=== PATIENT | male | born 1935 | race Hispanic/Latino ===

== ENCOUNTER 2017-09-10 15:21 | Inpatient (IN) | payer MEDICARE ==
[2017-09-10] MEDS ORDERED: TYLENOL PO ONE (15:56)
[2017-09-10] MEDS ORDERED: DUONEB *Not for PRN Use IH ONE ×2 (16:00→18:18)
[2017-09-10 16:27] LABS: Basophils % (Auto) 0.3 % (0.0-1.8); Eosinophils % (Auto) 0.2 % (0.0-4.3); Hematocrit 40.4 % (35.5-45.6); Lymphocytes # (Auto) 0.7 K/mm3 (1.2-5.4); Lymphocytes % (Auto) 8.2 % (13.4-35.0); Mean Corpuscular HGB Conc 35 % (32-34); Mean Corpuscular Hemoglobin 32 pg (28-32); Mean Corpuscular Volume 91 fl (84-94); Monocytes # (Auto) 0.8 K/mm3 (0.0-0.8); Monocytes % (Auto) 9.1 % (0.0-7.3); Platelet Count 147 K/mm3 (140-440); Red Blood Count 4.42 M/mm3 (3.65-5.03); Red Cell Distribution Width 13.2 % (13.2-15.2)
[2017-09-10 16:34] LABS: INR 1.09 (0.87-1.13)
[2017-09-10 16:46] LABS: Alanine Aminotransferase 7 units/L (7-56); Albumin 3.9 g/dL (3.9-5); BUN/Creatinine Ratio 19; Blood Urea Nitrogen 17 mg/dL (9-20); Calcium 8.5 mg/dL (8.4-10.2); Hemolysis Index 3
[2017-09-10] MEDS ORDERED: TAMIFLU PO ONE (17:00)
--- NOTE | 2017-09-10 17:24 | XRay Report ---
FINAL REPORT EXAM: XR CHEST 1V AP HISTORY: possible Sepsis TECHNIQUE: upright single view chest PRIORS: None. FINDINGS: Cardiac and mediastinal contours are unremarkable. No focal pulmonary infiltrate is identified. No pleural fluid collection seen. Pulmonary vasculature is unremarkable. Sternotomy wires are noted. IMPRESSION: Negative single-view chest
--- NOTE | 2017-09-10 17:57 | Emergency Department Report ---
ED Fever HPI - General Chief Complaint: Fever Stated Complaint: FLU LIKE SYMPTOMS Time Seen by Provider: 09/10/17 15:59 Source: patient, family - History of Present Illness Initial Comments: Patient's sick for several days, saw his primary doctor yesterday and they started Motrin. Patient does have fever and body aches questionable productive cough denies chest pain no headache no stiff neck no rash here for evaluation of fever and generalized malaise bodyaches with possible productive sputum o2 86 ra at triage Fever Severity/Quality: greater than 100.5 F Associated Symptoms: shortness of breath. denies: chest pain, diaphoresis, headache, nausea/vomiting, rash, stiff neck, weakness ED Review of Systems ROS: Stated complaint: FLU LIKE SYMPTOMS Other details as noted in HPI Comment: All other systems reviewed and negative Constitutional: fever, malaise, weakness. denies: diaphoresis Respiratory: cough. denies: orthopnea, stridor Cardiovascular: denies: chest pain, palpitations, dyspnea on exertion, orthopnea , edema, syncope, paroxysmal nocturnal dyspnea Gastrointestinal: denies: hematemesis, melena, hematochezia Musculoskeletal: denies: joint swelling, arthralgia, myalgia Skin: denies: rash, lesions Neurological: denies: numbness, paresthesias, confusion, abnormal gait, vertigo ED Past Medical Hx - Past Medical History Previous Medical History?: Yes Hx Heart Attack/AMI: Yes - Surgical History Past Surgical History?: Yes Hx Open Heart Surgery: Yes (triple bypass) - Social History Smoking Status: Former Smoker Substance Use Type: None ED Physical Exam - General Limitations: No Limitations General appearance: alert, anxious, other (moderate distress. increased wob) - Head Head exam: Present: atraumatic, normocephalic - Neck Neck exam: Present: normal inspection. Absent: tenderness, meningismus - Respiratory Respiratory exam: Present: wheezes, rales, rhonchi, accessory muscle use. Absent: stridor, chest wall tenderness - Cardiovascular Cardiovascular Exam: Present: regular rate, normal heart sounds. Absent: systolic murmur, rubs, gallop - GI/Abdominal GI/Abdominal exam: Present: soft. Absent: tenderness, guarding, rebound, mass, pulsatile mass - Extremities Exam Extremities exam: Present: normal inspection. Absent: tenderness, joint swelling, calf tenderness - Neurological Exam Neurological exam: Present: alert, oriented X3, CN II-XII intact. Absent: motor sensory deficit - Psychiatric Psychiatric exam: Present: anxious. Absent: suicidal ideation - Skin Skin exam: Absent: erythema, urticaria, vesicles, petechiae, ecchymosis ED Course Vital Signs 09/10/17 09/10/17 09/10/17 15:45 16:26 18:16 Temperature 100.9 F H Pulse Rate 86 87 Pulse Rate [ Anterior Bilateral Throughout] Respiratory 20 17 20 Rate Respiratory Rate [Anterior Bilateral Throughout] Blood Pressure 143/72 Blood Pressure 134/64 [Right] O2 Sat by Pulse 86 97 100 Oximetry 09/10/17 09/10/17 18:19 18:36 Temperature Pulse Rate Pulse Rate [ 76 75 Anterior Bilateral Throughout] Respiratory Rate Respiratory 18 18 Rate [Anterior Bilateral Throughout] Blood Pressure Blood Pressure [Right] O2 Sat by Pulse Oximetry - Reevaluation(s) Reevaluation #1: 09/10/17 18:51 Patient placed on quality assurance monitor final EKG shows no acute ischemic change he was also placed on oxygen he had laboratory studies obtained ED Medical Decision Making - Lab Data Result diagrams: 09/10/17 16:02 09/10/17 16:02 - EKG Data EKG shows normal: sinus rhythm - EKG Data Interpretation: nonspecific ST-T wave filemon - Radiology Data Radiology results: report reviewed - Medical Decision Making cxr negative by the radiologist, ABG does show a PO2 of 48 on room air with a pH of 7.47 with a PCO2 of 33 patient was placed on oxygen, given the nature of the hypoxia with elevated white count and fever with left shift patient was felt to have likely pneumonitis he was given Tamiflu .CTA was ordered to further evaluate for possible abnormality on the chest ,case was discussed with Dr. Monaco who will admit for further evaluation of fever yellowish sputum cough left shift leukocytosis with hypoxemia Critical care attestation.: If time is entered above; I have spent that time in minutes in the direct care of this critically ill patient, excluding procedure time. ED Disposition Clinical Impression: Febrile illness, acute, Hypoxemia Disposition: OP ADMIT IP TO THIS HOSP Is pt being admited?: Yes Condition: Stable Referrals: PRIMARY CARE, [Primary Care Provider] - 3-5 Days Time of Disposition: 18:55
--- NOTE | 2017-09-10 19:58 | Cat Scan Report ---
FINAL REPORT EXAM: CT CHEST W CON HISTORY: dypsnea TECHNIQUE: CT chest CT angiogram with reconstructions PRIORS: None. FINDINGS: There is no evidence of filling defect within the central pulmonary vasculature to suggest the presence of acute pulmonary embolus. No evidence of mediastinal pathologic lymph node enlargement Heart and great vessels are unremarkable. There is aneurysmal dilatation of the ascending thoracic aorta 4.0 x 4.0 centimeters. No evidence for dissection. Aortic atherosclerosis noted There is bronchial wall thickening with areas of mucous plugging primarily in the lower lobe distributions. Some scarring noted at the lung bases. There is bilateral apical pleural parenchymal scarring. No pleural fluid collection seen. No acute pulmonary abnormality noted. Visualized portion of the upper abdomen demonstrates no acute change. IMPRESSION: Bronchiectasis with mucous plugging in the lower lobes Ascending aortic aneurysm no evidence for dissection No CT evidence for acute pulmonary embolus
[2017-09-10] MEDS ORDERED: DULCOLAX PR PRN (21:39)
[2017-09-10] MEDS ORDERED: MILK OF MAGNESIA PO PRN (21:39)
[2017-09-10] MEDS ORDERED: ZOFRAN IV PRN (21:39)
[2017-09-10] MEDS ORDERED: TYLENOL PO PRN (21:39)
--- NOTE | 2017-09-10 21:39 | History and Physical Report ---
History of Present Illness Date of examination: 09/10/17 Date of admission: 09/10/17 Chief complaint: CC Fever chills 2 days History of present illness: History of Present Illness Patient's sick for several days, saw his primary doctor yesterday and they started Motrin. Patient does have fever and body aches questionable productive cough denies chest pain no headache no stiff neck no rash here for evaluation of fever and generalized malaise bodyaches with possible productive sputum o2 86 ra at triage Fever Severity/Quality: greater than 100.5 F Associated Symptoms: shortness of breath. denies: chest pain, diaphoresis, headache, nausea/vomiting, rash, stiff neck, weakness Past Medical History Previous Medical History?: Yes Hx Heart Attack/AMI: Yes - Surgical History Past Surgical History?: Yes Hx Open Heart Surgery: Yes (triple bypass) - Social History Smoking Status: Former Smoker Substance Use Type: None Review of Systems ROS: Stated complaint: FLU LIKE SYMPTOMS Other details as noted in HPI Comment: All other systems reviewed and negative Constitutional: fever, malaise, weakness. denies: diaphoresis Respiratory: cough. denies: orthopnea, stridor Cardiovascular: denies: chest pain, palpitations, dyspnea on exertion, orthopnea , edema, syncope, paroxysmal nocturnal dyspnea Gastrointestinal: denies: hematemesis, melena, hematochezia Musculoskeletal: denies: joint swelling, arthralgia, myalgia Skin: denies: rash, lesions Neurological: denies: numbness, paresthesias, confusion, abnormal gait, vertigo Medications and Allergies Allergies Allergy/AdvReac Type Severity Reaction Status Date / Time No Known Allergies Allergy Unverified 09/10/17 15:45 Home Medications Medication Instructions Recorded Confirmed Last Taken Type Amlodipine Besylate [Norvasc] 5 mg PO QDAY 09/10/17 09/10/17 Unknown History Aspirin 81 mg PO QDAY 09/10/17 09/10/17 Unknown History Carvedilol 12.5 mg PO BID 09/10/17 09/10/17 Unknown History Ibuprofen 800 mg PO TID PRN 09/10/17 09/10/17 Unknown History Exam - Constitutional Vitals: Temp Pulse Resp BP Pulse Ox 98.2 F 78 21 119/77 93 09/10/17 19:26 09/10/17 19:26 09/10/17 19:26 09/10/17 19:26 09/10/17 19:26 General appearance: Present: mild distress, well-nourished - EENT Eyes: Present: PERRL ENT: hearing intact, clear oral mucosa - Neck Neck: Present: supple, normal ROM - Respiratory Respiratory effort: normal Respiratory: bilateral: CTA, rhonchi (Scattered) - Cardiovascular Heart rate: 86 Rhythm: regular Heart Sounds: Present: S1 & S2. Absent: rub, click - Extremities Extremities: no ischemia, pulses intact, pulses symmetrical, No edema Peripheral Pulses: within normal limits - Abdominal General gastrointestinal: Present: soft, non-tender, non-distended, normal bowel sounds Male genitourinary: Present: normal - Rectal Rectal Exam: deferred - Integumentary Integumentary: Present: clear, warm, dry - Musculoskeletal Musculoskeletal: gait normal, strength equal bilaterally - Psychiatric Psychiatric: appropriate mood/affect, intact judgment & insight - Neurologic Neurologic: CNII-XII intact, moves all extremities - Allied Health Allied health notes reviewed: nursing Results - Labs CBC & Chem 7: 09/11/17 04:52 09/11/17 04:52 Labs: Laboratory Last Values WBC 9.0 K/mm3 (4.5-11.0) 09/10/17 16:02 RBC 4.42 M/mm3 (3.65-5.03) 09/10/17 16:02 Hgb 14.0 gm/dl (11.8-15.2) 09/10/17 16:02 Hct 40.4 % (35.5-45.6) 09/10/17 16:02 MCV 91 fl (84-94) 09/10/17 16:02 MCH 32 pg (28-32) 09/10/17 16:02 MCHC 35 % (32-34) H 09/10/17 16:02 RDW 13.2 % (13.2-15.2) 09/10/17 16:02 Plt Count 147 K/mm3 (140-440) 09/10/17 16:02 Lymph % (Auto) 8.2 % (13.4-35.0) L 09/10/17 16:02 [place] % (Auto) 9.1 % (0.0-7.3) H 09/10/17 16:02 Eos % (Auto) 0.2 % (0.0-4.3) 09/10/17 16:02 Baso % (Auto) 0.3 % (0.0-1.8) 09/10/17 16:02 Lymph # 0.7 K/mm3 (1.2-5.4) L 09/10/17 16:02 [place] # 0.8 K/mm3 (0.0-0.8) 09/10/17 16:02 Eos # 0.0 K/mm3 (0.0-0.4) 09/10/17 16:02 Baso # 0.0 K/mm3 (0.0-0.1) 09/10/17 16:02 Seg Neutrophils % 82.2 % (40.0-70.0) H 09/10/17 16:02 Seg Neutrophils # 7.4 K/mm3 (1.8-7.7) 09/10/17 16:02 PT 14.7 Sec. (12.2-14.9) 09/10/17 16:02 INR 1.09 (0.87-1.13) 09/10/17 16:02 POC ABG pH 7.472 (7.35-7.45) H 09/10/17 18:35 POC ABG pCO2 33.0 (35-45) L 09/10/17 18:35 POC ABG pO2 48 (80-105) L 09/10/17 18:35 POC ABG HCO3 24.2 09/10/17 18:35 POC ABG Total CO2 25 09/10/17 18:35 POC ABG O2 Sat 87 09/10/17 18:35 POC ABG Base Excess 1 09/10/17 18:35 VBG pH 7.434 (7.320-7.420) H 09/10/17 16:02 FiO2 21 % 09/10/17 18:35 Sodium 137 mmol/L (137-145) 09/10/17 16:02 Potassium 4.2 mmol/L (3.6-5.0) 09/10/17 16:02 Chloride 98.3 mmol/L (98-107) 09/10/17 16:02 Carbon Dioxide 26 mmol/L (22-30) 09/10/17 16:02 Anion Gap 17 mmol/L 09/10/17 16:02 BUN 17 mg/dL (9-20) 09/10/17 16:02 Creatinine 0.9 mg/dL (0.8-1.5) 09/10/17 16:02 Estimated GFR > 60 ml/min 09/10/17 16:02 BUN/Creatinine Ratio 19 % 09/10/17 16:02 Glucose 132 mg/dL (75-100) H 09/10/17 16:02 Lactic Acid 0.90 mmol/L (0.7-2.0) 09/10/17 18:36 Calcium 8.5 mg/dL (8.4-10.2) 09/10/17 16:02 Total Bilirubin 0.70 mg/dL (0.1-1.2) 09/10/17 16:02 AST 13 units/L (5-40) 09/10/17 16:02 ALT 7 units/L (7-56) 09/10/17 16:02 Alkaline Phosphatase 56 units/L (35-129) 09/10/17 16:02 Total Protein 6.5 g/dL (6.3-8.2) 09/10/17 16:02 Albumin 3.9 g/dL (3.9-5) 09/10/17 16:02 Albumin/Globulin Ratio 1.5 % 09/10/17 16:02 - Imaging and Cardiology Chest x-ray: report reviewed (NAF) CT scan - chest: report reviewed (Bronciectasis with mucus plugging) Assessment and Plan Advance Directives: Yes (FC) VTE prophylaxis?: Chemical - Patient Problems (1) Acute respiratory failure with hypoxia Current Visit: Yes Status: Acute Plan to address problem: ABG confirms Resp failure Cont Neb tx and IV Levaquin (2) COPD exacerbation Current Visit: Yes Status: Acute Plan to address problem: Duonebs Solu medrol and ABX (3) HTN (hypertension) Current Visit: Yes Status: Chronic Qualifiers: Hypertension type: essential hypertension Qualified Code(s): I10 - Essential (primary) hypertension Plan to address problem: Cont Amlodipine (4) DVT prophylaxis Current Visit: Yes Status: Acute Plan to address problem: On Lovenox
[2017-09-10] MEDS ORDERED: DILAUDID IV PRN (21:41)
[2017-09-10] MEDS ORDERED: PERCOCET 5/325 PO PRN (21:41)
[2017-09-10] MEDS ORDERED: AMBIEN PO PRN (21:41)
[2017-09-10] MEDS ORDERED: DUONEB *Not for PRN Use IH (21:45)
[2017-09-10] MEDS ORDERED: PROVENTIL IH PRN (21:51)
[2017-09-10] MEDS: cefTRIAXone 2 GM in NACL 0.9% 20 ML IV SCH (23:00)
[2017-09-10] MEDS: LOVENOX SUB-Q SCH (23:03)
[2017-09-10] MEDS: PEPCID PO SCH (23:03)
[2017-09-10] MEDS: ZITHROMAX 500 MG in NACL 0.9% 250ML 250 ML IV SCH (23:28)
[2017-09-10 23:41] LABS: Bilirubin,Urine NEG (Negative); Blood,Urine NEG (Negative); Color,Urine Yellow (Yellow); Mucus,Urine FEW /HPF; Nitrite,Urine NEG (Negative); Protein,Urine <15 mg/dL mg/dL (Negative)
[2017-09-11] MEDS ORDERED: D5NS 1,000 ML IV SCH
[2017-09-11 05:25] LABS: Basophils % (Auto) 0.3 % (0.0-1.8); Eosinophils % (Auto) 0.2 % (0.0-4.3); Hematocrit 40.7 % (35.5-45.6); Hemoglobin 13.8 gm/dl (11.8-15.2); Lymphocytes # (Auto) 1.3 K/mm3 (1.2-5.4); Lymphocytes % (Auto) 16.3 % (13.4-35.0); Mean Corpuscular HGB Conc 34 % (32-34); Mean Corpuscular Hemoglobin 31 pg (28-32); Mean Corpuscular Volume 92 fl (84-94); Monocytes # (Auto) 0.8 K/mm3 (0.0-0.8); Monocytes % (Auto) 10.3 % (0.0-7.3); Platelet Count 153 K/mm3 (140-440); Red Blood Count 4.44 M/mm3 (3.65-5.03)
[2017-09-11 05:30] LABS: Alanine Aminotransferase 7 units/L (7-56); Albumin 3.6 g/dL (3.9-5); BUN/Creatinine Ratio 20; Blood Urea Nitrogen 16 mg/dL (9-20); Calcium 8.5 mg/dL (8.4-10.2); Hemolysis Index 8
[2017-09-11] MEDS ORDERED: MOTRIN PO PRN (07:23)
[2017-09-11] MEDS: ZITHROMAX 500 MG in NACL 0.9% 250ML 250 ML IV SCH (10:10)
[2017-09-11] MEDS: LOVENOX SUB-Q SCH (10:15)
[2017-09-11] MEDS: PEPCID PO SCH ×2 (10:15→21:00)
[2017-09-11] MEDS: NORVASC PO SCH (10:16)
[2017-09-11] MEDS: BABY ASPIRIN PO SCH (10:16)
[2017-09-11] MEDS: COREG PO SCH ×2 (10:16→21:01)
--- NOTE | 2017-09-11 10:48 | Progress Note ---
Assessment and Plan Assessment and plan: Acute hypoxic respiratory failure. ABG reveals hypoxemia. Continue nebulizer treatments and supportive care. BiPAP as clinically indicated. Acute COPD exacerbation. Continue nebulizer, IV steroids and antibiotics. Bilateral pneumonia. Continue IV antibiotics as noted above. Follow serial chest x-ray. CT scan of the chest reveals bronchiectasis with mucous plugging in the lower lung somers. Consider Pulmonary consultation. Hypertension. Continue Norvasc. DVT prophylaxis. Continue Lovenox. History Interval history: No new issues overnight. Hospitalist Physical - Constitutional Vitals: Temp Pulse Resp BP Pulse Ox 98.7 F 77 20 167/73 93 09/11/17 08:00 09/11/17 10:16 09/11/17 03:30 09/11/17 10:16 09/11/17 10:41 General appearance: Present: no acute distress, well-nourished Results - Labs CBC & Chem 7: 09/11/17 04:52 09/11/17 04:52 Labs: Laboratory Last Values WBC 8.1 K/mm3 (4.5-11.0) 09/11/17 04:52 RBC 4.44 M/mm3 (3.65-5.03) 09/11/17 04:52 Hgb 13.8 gm/dl (11.8-15.2) 09/11/17 04:52 Hct 40.7 % (35.5-45.6) 09/11/17 04:52 MCV 92 fl (84-94) 09/11/17 04:52 MCH 31 pg (28-32) 09/11/17 04:52 MCHC 34 % (32-34) 09/11/17 04:52 RDW 13.0 % (13.2-15.2) L 09/11/17 04:52 Plt Count 153 K/mm3 (140-440) 09/11/17 04:52 Lymph % (Auto) 16.3 % (13.4-35.0) 09/11/17 04:52 [place] % (Auto) 10.3 % (0.0-7.3) H 09/11/17 04:52 Eos % (Auto) 0.2 % (0.0-4.3) 09/11/17 04:52 Baso % (Auto) 0.3 % (0.0-1.8) 09/11/17 04:52 Lymph # 1.3 K/mm3 (1.2-5.4) 09/11/17 04:52 [place] # 0.8 K/mm3 (0.0-0.8) 09/11/17 04:52 Eos # 0.0 K/mm3 (0.0-0.4) 09/11/17 04:52 Baso # 0.0 K/mm3 (0.0-0.1) 09/11/17 04:52 Seg Neutrophils % 72.9 % (40.0-70.0) H 09/11/17 04:52 Seg Neutrophils # 5.9 K/mm3 (1.8-7.7) 09/11/17 04:52 PT 14.7 Sec. (12.2-14.9) 09/10/17 16:02 INR 1.09 (0.87-1.13) 09/10/17 16:02 POC ABG pH 7.472 (7.35-7.45) H 09/10/17 18:35 POC ABG pCO2 33.0 (35-45) L 09/10/17 18:35 POC ABG pO2 48 (80-105) L 09/10/17 18:35 POC ABG HCO3 24.2 09/10/17 18:35 POC ABG Total CO2 25 09/10/17 18:35 POC ABG O2 Sat 87 09/10/17 18:35 POC ABG Base Excess 1 09/10/17 18:35 VBG pH 7.434 (7.320-7.420) H 09/10/17 16:02 FiO2 21 % 09/10/17 18:35 Sodium 138 mmol/L (137-145) 09/11/17 04:52 Potassium 3.7 mmol/L (3.6-5.0) 09/11/17 04:52 Chloride 97.7 mmol/L (98-107) L 09/11/17 04:52 Carbon Dioxide 27 mmol/L (22-30) 09/11/17 04:52 Anion Gap 17 mmol/L 09/11/17 04:52 BUN 16 mg/dL (9-20) 09/11/17 04:52 Creatinine 0.8 mg/dL (0.8-1.5) 09/11/17 04:52 Estimated GFR > 60 ml/min 09/11/17 04:52 BUN/Creatinine Ratio 20 % 09/11/17 04:52 Glucose 101 mg/dL (75-100) H 09/11/17 04:52 Hemoglobin A1c 5.5 % (4-6) 09/10/17 21:55 Lactic Acid 0.90 mmol/L (0.7-2.0) 09/10/17 18:36 Calcium 8.5 mg/dL (8.4-10.2) 09/11/17 04:52 Total Bilirubin 0.50 mg/dL (0.1-1.2) 09/11/17 04:52 AST 12 units/L (5-40) 09/11/17 04:52 ALT 7 units/L (7-56) 09/11/17 04:52 Alkaline Phosphatase 55 units/L (35-129) 09/11/17 04:52 Total Protein 6.7 g/dL (6.3-8.2) 09/11/17 04:52 Albumin 3.6 g/dL (3.9-5) L 09/11/17 04:52 Albumin/Globulin Ratio 1.2 % 09/11/17 04:52 Urine Color Yellow (Yellow) 09/10/17 23:25 Urine Turbidity Clear (Clear) 09/10/17 23:25 Urine pH 5.0 (5.0-7.0) 09/10/17 23:25 Ur Specific [place] 1.054 (1.003-1.030) H 09/10/17 23:25 Urine Protein <15 mg/dl mg/dL (Negative) 09/10/17 23:25 Urine Glucose (UA) Neg mg/dL (Negative) 09/10/17 23:25 Urine Ketones Neg mg/dL (Negative) 09/10/17 23:25 Urine Blood Neg (Negative) 09/10/17 23:25 Urine Nitrite Neg (Negative) 09/10/17 23:25 Urine Bilirubin Neg (Negative) 09/10/17 23:25 Urine Urobilinogen 2.0 mg/dL (<2.0) 09/10/17 23:25 Ur Leukocyte Esterase Neg (Negative) 09/10/17 23:25 Urine WBC (Auto) 1.0 /HPF (0.0-6.0) 09/10/17 23:25 Urine RBC (Auto) 3.0 /HPF (0.0-6.0) 09/10/17 23:25 Urine Mucus Few /HPF 09/10/17 23:25
[2017-09-11] MEDS ORDERED: PNEUMOVAX 23 IM ONE (12:00)
[2017-09-11] MEDS: cefTRIAXone 2 GM in NACL 0.9% 20 ML IV SCH (21:00)
[2017-09-12 05:42] LABS: Basophils % (Auto) 0.2 % (0.0-1.8); Eosinophils # (Auto) 0.1 K/mm3 (0.0-0.4); Eosinophils % (Auto) 0.9 % (0.0-4.3); Hemoglobin 12.2 gm/dl (11.8-15.2); Lymphocytes # (Auto) 1.6 K/mm3 (1.2-5.4); Lymphocytes % (Auto) 23.3 % (13.4-35.0); Mean Corpuscular HGB Conc 35 % (32-34); Mean Corpuscular Hemoglobin 32 pg (28-32); Mean Corpuscular Volume 92 fl (84-94); Monocytes # (Auto) 0.6 K/mm3 (0.0-0.8); Monocytes % (Auto) 9.7 % (0.0-7.3); Platelet Count 145 K/mm3 (140-440); Red Blood Count 3.83 M/mm3 (3.65-5.03); Red Cell Distribution Width 12.9 % (13.2-15.2)
[2017-09-12 06:02] LABS: BUN/Creatinine Ratio 20; Blood Urea Nitrogen 18 mg/dL (9-20); Hemolysis Index 11
--- NOTE | 2017-09-12 07:10 | Progress Note ---
Assessment and Plan Assessment and plan: Acute hypoxic respiratory failure. ABG reveals hypoxemia. Continue nebulizer treatments and supportive care. BiPAP as clinically indicated. Acute COPD exacerbation. Continue nebulizer, IV steroids and antibiotics. Bilateral pneumonia. Continue IV antibiotics as noted above. Follow serial chest x-ray. CT scan of the chest reveals bronchiectasis with mucous plugging in the lower lung somers. Consider Pulmonary consultation. Hypertension. Continue Norvasc. DVT prophylaxis. Continue Lovenox. Disposition. Anticipate discharge in am History Interval history: No new issues overnight. Hospitalist Physical - Constitutional Vitals: Temp Pulse Resp BP Pulse Ox 99.9 F H 74 20 105/50 94 09/11/17 17:00 09/11/17 22:00 09/11/17 17:00 09/11/17 21:01 09/11/17 22:00 General appearance: Present: no acute distress, well-nourished - EENT Eyes: Present: PERRL, EOM intact ENT: hearing intact, clear oral mucosa, dentition normal - Neck Neck: Present: supple, normal ROM - Respiratory Respiratory effort: normal Respiratory: bilateral: CTA - Cardiovascular Rhythm: regular Heart Sounds: Present: S1 & S2. Absent: gallop, rub - Extremities Extremities: no ischemia, No edema, Full ROM - Abdominal General gastrointestinal: soft, non-tender, non-distended, normal bowel sounds - Integumentary Integumentary: Present: clear, warm, dry - Neurologic Neurologic: CNII-XII intact, moves all extremities Results - Labs CBC & Chem 7: 09/12/17 05:22 09/12/17 05:22 Labs: Laboratory Last Values WBC 6.7 K/mm3 (4.5-11.0) 09/12/17 05:22 RBC 3.83 M/mm3 (3.65-5.03) 09/12/17 05:22 Hgb 12.2 gm/dl (11.8-15.2) 09/12/17 05:22 Hct 35.0 % (35.5-45.6) L 09/12/17 05:22 MCV 92 fl (84-94) 09/12/17 05:22 MCH 32 pg (28-32) 09/12/17 05:22 MCHC 35 % (32-34) H 09/12/17 05:22 RDW 12.9 % (13.2-15.2) L 09/12/17 05:22 Plt Count 145 K/mm3 (140-440) 09/12/17 05:22 Lymph % (Auto) 23.3 % (13.4-35.0) 09/12/17 05:22 [place] % (Auto) 9.7 % (0.0-7.3) H 09/12/17 05:22 Eos % (Auto) 0.9 % (0.0-4.3) 09/12/17 05:22 Baso % (Auto) 0.2 % (0.0-1.8) 09/12/17 05:22 Lymph # 1.6 K/mm3 (1.2-5.4) 09/12/17 05:22 [place] # 0.6 K/mm3 (0.0-0.8) 09/12/17 05:22 Eos # 0.1 K/mm3 (0.0-0.4) 09/12/17 05:22 Baso # 0.0 K/mm3 (0.0-0.1) 09/12/17 05:22 Seg Neutrophils % 65.9 % (40.0-70.0) 09/12/17 05: Seg Neutrophils # 4.4 K/mm3 (1.8-7.7) 09/12/17 05:22 PT 14.7 Sec. (12.2-14.9) 09/10/17 16:02 INR 1.09 (0.87-1.13) 09/10/17 16:02 POC ABG pH 7.472 (7.35-7.45) H 09/10/17 18:35 POC ABG pCO2 33.0 (35-45) L 09/10/17 18:35 POC ABG pO2 48 (80-105) L 09/10/17 18:35 POC ABG HCO3 24.2 09/10/17 18:35 POC ABG Total CO2 25 09/10/17 18:35 POC ABG O2 Sat 87 09/10/17 18:35 POC ABG Base Excess 1 09/10/17 18:35 VBG pH 7.434 (7.320-7.420) H 09/10/17 16:02 FiO2 21 % 09/10/17 18:35 Sodium 136 mmol/L (137-145) L 09/12/17 05:22 Potassium 3.6 mmol/L (3.6-5.0) 09/12/17 05:22 Chloride 98.5 mmol/L (98-107) 09/12/17 05:22 Carbon Dioxide 25 mmol/L (22-30) 09/12/17 05:22 Anion Gap 16 mmol/L 09/12/17 05:22 BUN 18 mg/dL (9-20) 09/12/17 05:22 Creatinine 0.9 mg/dL (0.8-1.5) 09/12/17 05:22 Estimated GFR > 60 ml/min 09/12/17 05:22 BUN/Creatinine Ratio 20 % 09/12/17 05:22 Glucose 102 mg/dL (75-100) H 09/12/17 05:22 Hemoglobin A1c 5.5 % (4-6) 09/10/17 21:55 Lactic Acid 0.90 mmol/L (0.7-2.0) 09/10/17 18:36 Calcium 8.0 mg/dL (8.4-10.2) L 09/12/17 05:22 Total Bilirubin 0.50 mg/dL (0.1-1.2) 09/11/17 04:52 AST 12 units/L (5-40) 09/11/17 04:52 ALT 7 units/L (7-56) 09/11/17 04:52 Alkaline Phosphatase 55 units/L (35-129) 09/11/17 04:52 Total Protein 6.7 g/dL (6.3-8.2) 09/11/17 04:52 Albumin 3.6 g/dL (3.9-5) L 09/11/17 04:52 Albumin/Globulin Ratio 1.2 % 09/11/17 04:52 Urine Color Yellow (Yellow) 09/10/17 23:25 Urine Turbidity Clear (Clear) 09/10/17 23:25 Urine pH 5.0 (5.0-7.0) 09/10/17 23:25 Ur Specific [place] 1.054 (1.003-1.030) H 09/10/17 23:25 Urine Protein <15 mg/dl mg/dL (Negative) 09/10/17 23:25 Urine Glucose (UA) Neg mg/dL (Negative) 09/10/17 23:25 Urine Ketones Neg mg/dL (Negative) 09/10/17 23:25 Urine Blood Neg (Negative) 09/10/17 23: Urine Nitrite Neg (Negative) 09/10/17 23:25 Urine Bilirubin Neg (Negative) 09/10/17 23:25 Urine Urobilinogen 2.0 mg/dL (<2.0) 09/10/17 23:25 Ur Leukocyte Esterase Neg (Negative) 09/10/17 23:25 Urine WBC (Auto) 1.0 /HPF (0.0-6.0) 09/10/17 23:25 Urine RBC (Auto) 3.0 /HPF (0.0-6.0) 09/10/17 23:25 Urine Mucus Few /HPF 09/10/17 23:25
[2017-09-12] MEDS: BABY ASPIRIN PO SCH (10:48)
[2017-09-12] MEDS: COREG PO SCH ×2 (10:48→21:33)
[2017-09-12] MEDS: LOVENOX SUB-Q SCH (10:48)
[2017-09-12] MEDS: ZITHROMAX 500 MG in NACL 0.9% 250ML 250 ML IV SCH (10:48)
[2017-09-12] MEDS: NORVASC PO SCH (10:49)
[2017-09-12] MEDS: PEPCID PO SCH ×2 (10:49→21:33)
--- NOTE | 2017-09-12 13:59 | Consultation ---
History of Present Illness Consult date: 09/12/17 Requesting physician: KIMMY SIMMS Reason for consult: pneumonia, other (Bronchiectasis) History of present illness: PULMONARY/CCM CONSULT NOTE (Full dictation # [id number]) Please see dictated notes for full details Medications and Allergies Allergies Allergy/AdvReac Type Severity Reaction Status Date / Time No Known Allergies Allergy Unverified 09/10/17 15:45 Home Medications Medication Instructions Recorded Confirmed Last Taken Type Amlodipine Besylate [Norvasc] 5 mg PO QDAY 09/10/17 09/10/17 Unknown History Aspirin 81 mg PO QDAY 09/10/17 09/10/17 Unknown History Carvedilol 12.5 mg PO BID 09/10/17 09/10/17 Unknown History Ibuprofen 800 mg PO TID PRN 09/10/17 09/10/17 Unknown History Active Meds: Active Medications Acetaminophen (Tylenol) 650 mg PO Q4H PRN PRN Reason: Pain MILD(1-3)/Fever >100.5/IZAGUIRRE Albuterol (Proventil) 2.5 mg IH Q3HRT PRN PRN Reason: Shortness Of Breath Amlodipine Besylate (Norvasc) 5 mg PO QDAY [facility] Last Admin: 09/12/17 10:49 Dose: 5 mg Aspirin (Baby Aspirin) 81 mg PO QDAY [facility] Last Admin: 09/12/17 10:48 Dose: 81 mg Azithromycin (Zithromax) 500 mg PO QDAY [facility] Bisacodyl (Dulcolax) [address] QDAY PRN PRN Reason: Constipation unrelieved by MOM Carvedilol (Coreg) 12.5 mg PO BID [facility] Last Admin: 09/12/17 10:48 Dose: 12.5 mg Enoxaparin Sodium (Lovenox) 40 mg SUB-Q QDAY [facility] Last Admin: 09/12/17 10:48 Dose: 40 mg Famotidine (Pepcid) 20 mg PO BID [facility] Last Admin: 09/12/17 10:49 Dose: 20 mg Hydromorphone HCl (Dilaudid) 0.5 mg IV Q3H PRN PRN Reason: Pain , Severe (7-10) Ceftriaxone Sodium 2 gm/ (Sodium Chloride) 20 mls @ 20 mls/10 min IV Q24H [facility] PRN Reason: Protocol Last Admin: 09/11/17 21:00 Dose: 20 mls/10 min Ibuprofen (Motrin) 800 mg PO TID PRN PRN Reason: Pain Magnesium Hydroxide (Milk Of Magnesia) 30 ml PO Q4H PRN PRN Reason: Constipation Ondansetron HCl (Zofran) 4 mg IV Q8H PRN PRN Reason: N/V unrelieved by Reglan Oxycodone/Acetaminophen (Percocet 5/325) 1 tab PO Q6H PRN PRN Reason: Pain, Moderate (4-6) Zolpidem Tartrate (Ambien) 5 mg PO QHS PRN PRN Reason: Insomnia Physical Examination Vital signs: Vital Signs Temp Pulse Resp BP Pulse Ox 100.9 F H 86 20 143/72 86 09/10/17 15:45 09/10/17 15:45 09/10/17 15:45 09/10/17 15:45 09/10/17 15:45 Results - Laboratory Findings CBC and BMP: 09/12/17 05:22 09/12/17 05:22 ABG POC ABG pH 7.472 (7.35-7.45) H 09/10/17 18:35 POC ABG pCO2 33.0 (35-45) L 09/10/17 18:35 POC ABG pO2 48 (80-105) L 09/10/17 18:35 POC ABG HCO3 24.2 09/10/17 18:35 POC ABG Total CO2 25 09/10/17 18:35 POC ABG O2 Sat 87 09/10/17 18:35 PT/INR, D-dimer PT 14.7 Sec. (12.2-14.9) 09/10/17 16:02 INR 1.09 (0.87-1.13) 09/10/17 16:02 Abnormal lab findings: Abnormal Labs 09/10/17 09/10/17 09/10/17 16:02 16:02 16:02 Hct MCHC 35 H RDW Lymph % (Auto) 8.2 L Boundary % (Auto) 9.1 H Lymph # 0.7 L Seg Neutrophils % 82.2 H POC ABG pH POC ABG pCO2 POC ABG pO2 VBG pH 7.434 H Sodium Chloride Glucose 132 H Calcium Albumin Ur Specific [place] 09/10/17 09/10/17 09/11/17 18:35 23:25 04:52 Hct MCHC RDW 13.0 L Lymph % (Auto) Boundary % (Auto) 10.3 H Lymph # Seg Neutrophils % 72.9 H POC ABG pH 7.472 H POC ABG pCO2 33.0 L POC ABG pO2 48 L VBG pH Sodium Chloride Glucose Calcium Albumin Ur Specific [place] 1.054 H 09/11/17 09/12/17 09/12/17 04:52 05:22 05:22 Hct 35.0 L MCHC 35 H RDW 12.9 L Lymph % (Auto) Boundary % (Auto) 9.7 H Lymph # Seg Neutrophils % POC ABG pH POC ABG pCO2 POC ABG pO2 VBG pH Sodium 136 L Chloride 97.7 L Glucose 101 H 102 H Calcium 8.0 L Albumin 3.6 L Ur Specific [place]
[2017-09-12] MEDS: BROVANA NEBU IH SCH (21:19)
[2017-09-13] MEDS: cefTRIAXone 2 GM in NACL 0.9% 20 ML IV SCH (02:27)
--- NOTE | 2017-09-13 03:25 | Consultation ---
PULMONARY CONSULT NOTE CONSULTING PHYSICIAN: Dr. Soni. REASON FOR CONSULTATION: Pneumonia, bronchiectasis. CHIEF COMPLAINT AND HISTORY OF PRESENT ILLNESS: The patient is an 82-year-old male with past medical history as far as he can tell me significant for coronary artery disease and a cerebrovascular accident he had in the past who complains of a few days of feeling sick. He felt like if he had the flu, he tells me he had a little bit of a sore throat. He was aching all over. He had a cough that was productive of yellowish phlegm. He denied any gross or streaky hemoptysis. He saw a physician at an outpatient clinic and was started on Motrin. He remembers a possible rapid influenza screen being done. He came into the Emergency Room when he continued to have the fevers and the shortness of breath. In the Emergency Room, he was evaluated, essentially diagnosed with acute febrile illness, possible pneumonia. CT imaging was done thereafter and I believe amongst other things it mentions bronchiectasis and likely mucus plugging as well as pneumonia, hence the consult. When I stopped by to see him, he was resting in bed, he felt a little bit better. He had a mask over his face. He denied any nausea, vomiting, or overt aspiration. He denied any new lumps, bumps, or swellings on his body. He does tell me that he has lost at least about 25 pounds since the last weighed himself late last year, so within the past 3 month, he has been eating well, does not know why he is losing weight. He also gives a history of 20+ pack year tobacco smoking history. He did quit smoking in 1987. This really is as much of the history of this presentation as I have. PAST MEDICAL HISTORY: Again, cerebrovascular accident, coronary artery disease. PAST SURGICAL HISTORY: He has had a coronary artery bypass surgery in the past. MEDICATIONS: He was on at the time I stopped by to see him have been reviewed. Pertinent medications included albuterol 2.5 mg nebulized q. 3 hours p.r.n. shortness of breath, Norvasc 5 mg p.o. daily, baby aspirin 81 mg p.o. daily, Zithromax 500 mg p.o. daily, Coreg 12.5 mg p.o. b.i.d., Rocephin 1 gram IV daily, Lovenox 40 mg subcutaneous daily, Pepcid 20 mg p.o. b.i.d., and p.r.n. Percocets. ALLERGIES: No known drug allergies. DIET: Thin, cachectic looking gentleman. He claims he has lost about 25 pounds in the past 3 months. FAMILY AND SOCIAL HISTORY: Lives in the community. Remote 20+ pack year tobacco smoking history. Denies current alcohol, tobacco, or illicit drug use or abuse. Family history, otherwise noncontributory. REVIEW OF SYSTEMS: He denies any drenching night sweats. He denies any gross hematochezia or melena, no gross hematuria or dysuria. No hematemesis. No hemoptysis, no palpitations. Complete 13 system review of systems obtained. Pertinent positives and/or negatives as in body of history above, otherwise they are noncontributory. PHYSICAL EXAMINATION: VITAL SIGNS: On examination at presentation, he had a low grade fever, temperature was 100.9 degrees Fahrenheit with a pulse of 86, respiratory rate of 20, and blood pressure 143/72, oxygen sats were 86%, inspired oxygen concentration at that time was not recorded. GENERAL: Elderly looking male, looks his stated age, normocephalic, atraumatic, looks chronically ill, in mild respiratory distress. HEAD, EYES, EARS, NOSE, AND THROAT: He is anicteric. No conjunctival erythema. Oropharynx is a Mallampati #2 oropharynx. Oropharynx is moist. No gross jugular venous distention, no thyromegaly, no palpable lymph nodes in the supraclavicular or submandibular lymph node chains. LUNGS: Auscultation of both lung somers significant for diminished bilateral breath sounds, faint inspiratory basilar rales, no wheezing. HEART: Heart sounds 1 and 2 are heard, regular rate and rhythm at the time of my evaluation. No rubs, no murmurs. ABDOMEN: Soft, flat. Bowel sounds are positive, nontender. No palpable hepatosplenomegaly. EXTREMITIES: Without overt digital clubbing or cyanosis, no pedal edema. Dorsalis pedis pulses are palpable bilaterally. NEUROLOGIC: Pupils are equal, round, about 4 mm reactive to light. Extraocular muscle movements appear intact. He moves all 4 extremities spontaneously. The skin is of normal turgor, no rash, no cellulitis. LABORATORY DATA: From my review is as follows; Admission white cell count 9000, hemoglobin 14.0, hematocrit 40.4, platelet count 147. INR 1.09. Arterial blood gas showed a pH of 7.47, pCO2 of 33, pO2 of 48 on room air. Serum sodium 137, potassium 4.2, chloride 98, bicarbonate 26, BUN 17, creatinine 0.9, glucose 132. Hemoglobin A1c was within expected limits. Liver function tests within expected limits. Urinalysis was unremarkable. Microbiology studies were done. Blood and urine cultures no growth to date. He did do a chest x-ray. I have reviewed the chest x-ray. A CT scan of his chest does show some mucus filled bronchioles in right lower lobe and basilar segments essentially and areas consistent with bronchiectasis. It was a CT angiogram and I do not see any filling defects consistent with pulmonary emboli. He has some shotty AP window lymphadenopathy. The long windows in particular demonstrate some apical capping, some paraseptal emphysema and more involved process actually in both apices. No gross pneumothorax, no gross bony fractures. ASSESSMENT: 1. Acute hypoxemic respiratory failure. 2. Acute exacerbation of chronic obstructive pulmonary disease based on clinical history and radiographic evaluation. 3. Community-acquired pneumonia. 4. Adult failure to thrive with unexplained weight loss. 5. Abnormal CT scan. 6. History of coronary artery disease. 7. History of cerebrovascular accident. 8. Remote tobacco abuse history. PLAN: I agree with empiric community acquired pneumonia coverage and treatment for about 5-7 day should be appropriate. He does have a normal white cell count; however, that does not rule out an infective process. I will get a CRP level to better evaluate that. His lactic acid level was normal at presentation. I doubt we are dealing with mycobacterial infection over here; however, he has lost significant weight. He does have upper lobe processes bilaterally. He has never been tested for TB. We will benefit at least from treatment for latent TB if there is no evidence of acute. For that reason, I will put a PPD skin test and consideration will be made for ____ QuantiFERON Gold assay also. No plans for airborne precautions in this gentleman at this point. I will send sputum for Gram stain, cultures and sensitivities. He will benefit from testing for influenza also, although his symptomatology has been going on for a while, it might help with prevention of transmission. He is appropriately on GI and DVT prophylaxis. Flu and pneumonia vaccinations will be addressed per protocol. Thank you very much for the consult. Again, I should mention we do agree with the antibiotics and I will be starting a quick run off a systemic steroid therapy, while also starting him on long-acting bronchodilators and ultimately transition him into inhaled corticosteroids. Outpatient pulmonary clinic evaluation will be of benefit. JOB# [id number] JAM/GRISEL
[2017-09-13 06:44] LABS: Hematocrit 38.4 % (35.5-45.6); Hemoglobin 12.8 gm/dl (11.8-15.2); Lymphocytes # (Auto) 0.6 K/mm3 (1.2-5.4); Lymphocytes % (Auto) 13.6 % (13.4-35.0); Mean Corpuscular HGB Conc 33 % (32-34); Mean Corpuscular Hemoglobin 31 pg (28-32); Mean Corpuscular Volume 92 fl (84-94); Monocytes # (Auto) 0.1 K/mm3 (0.0-0.8); Monocytes % (Auto) 2.1 % (0.0-7.3); Platelet Count 173 K/mm3 (140-440); Red Blood Count 4.16 M/mm3 (3.65-5.03); Red Cell Distribution Width 12.2 % (13.2-15.2)
[2017-09-13 06:50] LABS: BUN/Creatinine Ratio 27; Blood Urea Nitrogen 19 mg/dL (9-20); Calcium 8.2 mg/dL (8.4-10.2); Hemolysis Index 2
[2017-09-13] MEDS ORDERED: ZITHROMAX PO SCH (10:00)
[2017-09-13] MEDS: PEPCID PO SCH (10:58)
[2017-09-13] MEDS: LOVENOX SUB-Q SCH (10:58)
[2017-09-13] MEDS: NORVASC PO SCH (10:59)
[2017-09-13] MEDS: COREG PO SCH (10:59)
[2017-09-13] MEDS: BABY ASPIRIN PO SCH (11:31)
[2017-09-13] MEDS: BROVANA NEBU IH SCH (12:38)
--- NOTE | 2017-09-13 15:51 | Discharge Summary ---
Providers - Providers Date of Admission: 09/10/17 21:39 Date of discharge: 09/13/17 Attending physician: BESS PERALES MD 09/11/17 10:49 Consult to Physician [CONS] Routine Consulting Provider: RANDI ZHENG Reason For Exam: pna, bronchiectasis Place consult to:: ANSWERING SERVICE Notified:: YES Phone number called:: [phone] If yes, spoke with:: YUSUF Time called:: 08:34 Comment:: YARIEL Primary care physician: [facility] Hospitalization Reason for admission: acute hypoxic respiratory failure Condition: Stable Disposition: [id number] HOME UNDER HOME [facility] Time spent for discharge: 31 minutes - Discharge Diagnoses (1) Acute respiratory failure with hypoxia Status: Acute (2) COPD exacerbation Status: Acute (3) Hypoxemia Status: Acute (4) HTN (hypertension) Status: Chronic Qualifiers: Hypertension type: essential hypertension Qualified Code(s): I10 - Essential (primary) hypertension (5) Malnutrition Status: Acute Core Measure Documentation - Palliative Care Palliative Care/ Comfort Measures: Not Applicable - Core Measures Any of the following diagnoses?: none Exam - Physical Exam Narrative exam: Not in cardiopulmonary distress. The patient is emaciated. Vital signs as documented. Head exam is unremarkable. No scleral icterus . Neck is without jugular venous distension, thyromegaly, or carotid bruits. Lungs scattered wheezing. Cardiac exam reveals regular rate and Rhythm. First and second heart sounds normal. No murmurs, rubs or gallops. Abdominal exam reveals normal bowel sounds, no masses, no organomegaly and no aortic enlargement. Extremities are nonedematous and both femoral and pedal pulses are normal. FINISH CARPENTER: Alert and oriented 3. No focal weakness. - Constitutional Vitals: Temp Pulse Resp BP Pulse Ox 97.8 F 70 22 118/67 95 09/13/17 08:01 09/13/17 12:41 09/13/17 12:41 09/13/17 10:59 09/13/17 13:31 Plan Activity: no restrictions Weight Bearing Status: Full Weight Bearing Diet: low fat, low cholesterol, low salt Follow up with: PRIMARY CAREMD [Primary Care Provider] - 7 Days Prescriptions: ALBUTEROL Inhaler [ProAir HFA Inhaler] 2 puff IH QID PRN #1 can PRN Reason: Shortness Of Breath Arformoterol Nebu [Brovana Nebu] 15 mcg IH Q12HRT #30 ml Levofloxacin [Levaquin TAB] 500 mg PO QDAY #5 tablet Prednisone [predniSONE 10 mg (6-Day Pack, 21 Tabs)] 10 mg PO .TAPER #1 tab.ds.pk
[2017-09-13 17:41] VITALS: BP 125/56
== END 2017-09-13 19:40 | disposition home health service (06) | DRG 193 ==
LOC: ED 15:21 → 2B-ACE 21:39
PROVIDERS: ADMIT Internal Medicine; ATTEND Internal Medicine
PROC: 4A033R1 Measurement of Arterial Saturation, Peripheral, Percutaneous Approach (ICD-10-PCS; principal; 2017-09-10)
PROC: 3E0234Z Introduction of Serum, Toxoid and Vaccine into Muscle, Percutaneous Approach (ICD-10-PCS; 2017-09-11)
DX: J18.9 Pneumonia, unspecified organism (principal); J96.01 Acute respiratory failure with hypoxia; J44.1 Chronic obstructive pulmonary disease with (acute) exacerbation; E46 Unspecified protein-calorie malnutrition; Z68.1 Body mass index [BMI] 19.9 or less, adult; I25.10 Atherosclerotic heart disease of native coronary artery without angina pectoris; R62.7 Adult failure to thrive; I10 Essential (primary) hypertension; I25.2 Old myocardial infarction; Z87.891 Personal history of nicotine dependence; Z86.73 Personal history of transient ischemic attack (TIA), and cerebral infarction without residual deficits; Z23 Encounter for immunization
CPT/HCPCS: 36415; 71045; 71260; 80048; 80053; 81001; 82140; 82803; 82805; 83036; 85025; 85610; 86140; 87040; 87070; 87086; 87205; 90732; 93005; 93010; 94640; 94760; J0456; J0696; J1650; J2920; J7050; Q9967

== ENCOUNTER 2021-07-19 21:10 | Emergency (ER) | payer MEDICARE ==
[2021-07-19 23:28] VITALS: BP 153/73
== END 2021-07-21 05:17 | disposition left against medical advice (07) ==
LOC: ED 21:10
DX: Z00.00 Encounter for general adult medical examination without abnormal findings (principal); Z53.21 Procedure and treatment not carried out due to patient leaving prior to being seen by health care provider